=== PATIENT | male | born 1965 | race Caucasian/White ===

== ENCOUNTER 2017-10-30 13:16 | Emergency (ER) | payer OTHER ==
[~2017-10-30] VITALS: Ht 167.6 cm; Wt 113.4 kg
[2017-10-30 14:17] VITALS: BP 154/84; Ht 167.6 cm; Wt 113.4 kg
== END 2017-10-30 14:20 | disposition other institution (70) ==
LOC: ED 13:16
DX: Z02.89 Encounter for other administrative examinations (principal)